=== PATIENT | male | born 1935 | race Two or more races ===

== ENCOUNTER → 2016-11-18 | Outpatient (CLI) | payer MEDICARE, OTHER ==
[~2016-11-18] MED LIST: ASPI-231 PO; ATOR20TA PO; LISI2.5T47 PO; OMEP20CA74 PO; TRAV0.00 EACHEYE
[2016-11-18 12:21] LABS: Basophils # (auto) 0.1 uL; Eosinophils # (auto) 0.1 uL; Eosinophils % (auto) 1.4 % (0.0-7.0); Hematocrit 41.2 % (41.0-53.0); Hemoglobin 14.2 g/dL (13.5-17.5); Lymphocytes # (auto) 2.7 uL; Lymphocytes % (auto) 42.4 % (10.0-50.0); Mean Corpuscular Hemoglobin 31.8 pg (28.0-32.0); Mean Corpuscular Hgb Conc. 34.6 g/dL (32.0-36.0); Mean Platelet Volume 7.2 fL (6.9-10.8); Monocytes # (auto) 0.6 uL; Monocytes % (auto) 8.9 % (0.0-12.0); Neutrophils % (auto) 46.3 % (37.0-80.0); Nucleated Red Blood Cells % 0.1 %; Platelet Count (auto) 224 10^3/uL (140-450); Red Cell Distribution Width 13.7 % (11.8-14.3); White Blood Cell 6.4 10^3/uL (4.4-10.8)
[2016-11-18 12:25] LABS: Urine Bilirubin Negative (Negative); Urine Blood TRACE /uL (Negative); Urine Color Yellow (Yellow); Urine Glucose Normal (Normal); Urine Ketone Negative (Negative); Urine Nitrite Negative (Negative); Urine RBC 3 /hpf (0 - 3); Urine Urobilinogen Normal (Negative); Urine pH 6.5 (5.0-8.0)
[2016-11-18 13:03] LABS: Albumin 3.7 g/dL (3.4-5.0); BUN/Creatinine Ratio 14.6; Bilirubin, Total 0.6 mg/dL (0.2-1.0); Potassium 4.3 mmol/L (3.5-5.1); Total Protein 7.6 g/dL (6.4-8.2)
== END | disposition home or self-care (01) ==
LOC: LAB 11:37
PROVIDERS: ATTEND Internal Medicine
DX: E11.9 Type 2 diabetes mellitus without complications (principal); K21.9 Gastro-esophageal reflux disease without esophagitis; N40.0 Benign prostatic hyperplasia without lower urinary tract symptoms
CPT/HCPCS: 36415; 80053; 80061; 81001; 82043; 82607; 83036; 84153; 84439; 84443; 85025; 85652

== ENCOUNTER → 2017-02-14 | Outpatient (CLI) | payer MEDICARE, OTHER ==
[2017-02-14 12:37] LABS: Aspartate Aminotransferase 19 U/L (15-37); Cholesterol 221 mg/dL (< 200); HDL Cholesterol 57 mg/dL (40-59); LDL Cholesterol 143 mg/dL (< 100); Triglycerides 117 mg/dL (< 150)
== END | disposition home or self-care (01) ==
LOC: LAB 11:36
PROVIDERS: ATTEND Internal Medicine
DX: E11.9 Type 2 diabetes mellitus without complications (principal); E78.00 Pure hypercholesterolemia, unspecified
CPT/HCPCS: 36415; 80061; 83036; 84450; 84460

== ENCOUNTER → 2017-06-03 | Outpatient (CLI) | payer MEDICARE, OTHER ==
[2017-06-03 12:04] LABS: Alanine Aminotransferase 26 U/L (16-61); Aspartate Aminotransferase 21 U/L (15-37); Cholesterol 157 mg/dL (< 200); HDL Cholesterol 55 mg/dL (40-59); LDL Cholesterol 95 mg/dL (< 100); Triglycerides 95 mg/dL (< 150)
== END | disposition home or self-care (01) ==
LOC: LAB 11:21
PROVIDERS: ATTEND Internal Medicine
DX: E11.9 Type 2 diabetes mellitus without complications (principal); E78.00 Pure hypercholesterolemia, unspecified
CPT/HCPCS: 36415; 80061; 83036; 84443; 84450; 84460

== ENCOUNTER → 2017-12-16 | Outpatient (CLI) | payer MEDICARE, OTHER ==
[2017-12-16 12:50] LABS: Basophils # (auto) 0.1 uL; Basophils % (auto) 0.9 % (0.0-2.0); Eosinophils # (auto) 0.1 uL; Eosinophils % (auto) 1.5 % (0.0-7.0); Hematocrit 41.4 % (41.0-53.0); Hemoglobin 14.2 g/dL (13.5-17.5); Lymphocytes # (auto) 2.4 uL; Lymphocytes % (auto) 36.1 % (10.0-50.0); Mean Corpuscular Hemoglobin 31.6 pg (28.0-32.0); Mean Corpuscular Hgb Conc. 34.2 g/dL (32.0-36.0); Mean Corpuscular Volume 92.5 fL (80.0-100.0); Monocytes # (auto) 0.5 uL; Neutrophils # (auto) 3.5 uL; Neutrophils % (auto) 53.5 % (37.0-80.0); Nucleated Red Blood Cells % 0.1 %; Platelet Count (auto) 218 10^3/uL (140-450); Red Blood Cells 4.48 10^6/uL (4.5-5.90); Red Cell Distribution Width 13.6 % (11.8-14.3); White Blood Cell 6.6 10^3/uL (4.4-10.8)
[2017-12-16 17:08] LABS: BUN/Creatinine Ratio 12.8
[2017-12-16 17:09] LABS: Albumin 3.8 g/dL (3.4-5.0); Calcium 8.4 mg/dL (8.5-10.1)
[2017-12-16 17:11] LABS: Bilirubin, Total 0.5 mg/dL (0.2-1.0); Total Protein 7.3 g/dL (6.4-8.2)
== END | disposition home or self-care (01) ==
LOC: LAB 12:20
PROVIDERS: ATTEND Internal Medicine
DX: E11.9 Type 2 diabetes mellitus without complications (principal); I25.10 Atherosclerotic heart disease of native coronary artery without angina pectoris; N40.0 Benign prostatic hyperplasia without lower urinary tract symptoms; Z87.891 Personal history of nicotine dependence
CPT/HCPCS: 36415; 80053; 83036; 84153; 85025

== ENCOUNTER → 2018-06-01 | Outpatient (CLI) | payer MEDICARE, OTHER ==
[2018-06-01 12:27] LABS: Urine WBC None Seen /hpf (0 - 3)
[2018-06-01 12:40] LABS: Basophils # (auto) 0.1 uL; Basophils % (auto) 0.9 % (0.0-2.0); Eosinophils # (auto) 0.1 uL; Eosinophils % (auto) 2.2 % (0.0-7.0); Hematocrit 42.9 % (41.0-53.0); Hemoglobin 14.5 g/dL (13.5-17.5); Lymphocytes # (auto) 2.4 uL; Lymphocytes % (auto) 37.7 % (10.0-50.0); Mean Corpuscular Hemoglobin 31.2 pg (28.0-32.0); Mean Corpuscular Hgb Conc. 33.7 g/dL (32.0-36.0); Mean Corpuscular Volume 92.4 fL (80.0-100.0); Monocytes # (auto) 0.6 uL; Monocytes % (auto) 10.1 % (0.0-12.0); Neutrophils # (auto) 3.1 uL; Neutrophils % (auto) 49.1 % (37.0-80.0); Nucleated Red Blood Cells % 0.2 %; Platelet Count (auto) 223 10^3/uL (140-450); Red Blood Cells 4.65 10^6/uL (4.5-5.90); Red Cell Distribution Width 13.5 % (11.8-14.3); White Blood Cell 6.3 10^3/uL (4.4-10.8)
[2018-06-01 12:56] LABS: Urine Bacteria NONE SEEN /hpf (None Seen); Urine Blood 1+ /uL (Negative); Urine Specific Gravity 1.012 (1.001-1.035)
[2018-06-01 13:17] LABS: BUN/Creatinine Ratio 14.8; Potassium 4.2 mmol/L (3.5-5.1)
[2018-06-01 13:18] LABS: Albumin 3.7 g/dL (3.4-5.0)
[2018-06-01 13:20] LABS: Bilirubin, Total 0.6 mg/dL (0.2-1.0); Total Protein 7.4 g/dL (6.4-8.2)
== END | disposition home or self-care (01) ==
LOC: LAB 12:06
PROVIDERS: ATTEND Internal Medicine
DX: E11.9 Type 2 diabetes mellitus without complications (principal)
CPT/HCPCS: 36415; 80053; 80061; 81001; 82043; 84439; 84443; 85025; 85652

== ENCOUNTER → 2018-08-31 | Outpatient (CLI) | payer MEDICARE, OTHER ==
[2018-08-31 11:11] LABS: Cholesterol 158 mg/dL (< 200); HDL Cholesterol 50 mg/dL (40-59); LDL Cholesterol 97 mg/dL (< 100); Triglycerides 133 mg/dL (< 150)
[2018-08-31 13:49] LABS: Folate (Folic Acid) > 24.00 ng/mL (5.38-24)
== END | disposition home or self-care (01) ==
LOC: LAB 10:11
PROVIDERS: ATTEND Internal Medicine
DX: E78.00 Pure hypercholesterolemia, unspecified (principal); G62.9 Polyneuropathy, unspecified; R73.03 Prediabetes
CPT/HCPCS: 36415; 80061; 82607; 82746; 83036

== ENCOUNTER 2018-09-08 09:16 | Day surgery (SDC) | payer MEDICARE, OTHER ==
[2018-09-05 08:55] LABS: Basophils # (auto) 0 uL; Basophils % (auto) 0.7 % (0.0-2.0); Eosinophils # (auto) 0.2 uL; Eosinophils % (auto) 3.2 % (0.0-7.0); Hematocrit 42.6 % (41.0-53.0); Hemoglobin 14.4 g/dL (13.5-17.5); Lymphocytes # (auto) 2.3 uL; Lymphocytes % (auto) 34.4 % (10.0-50.0); Mean Corpuscular Hemoglobin 31.2 pg (28.0-32.0); Mean Corpuscular Hgb Conc. 33.7 g/dL (32.0-36.0); Mean Corpuscular Volume 92.6 fL (80.0-100.0); Monocytes # (auto) 0.7 uL; Monocytes % (auto) 9.9 % (0.0-12.0); Neutrophils # (auto) 3.5 uL; Neutrophils % (auto) 51.8 % (37.0-80.0); Nucleated Red Blood Cells % 0.1 %; Platelet Count (auto) 235 10^3/uL (140-450); Red Cell Distribution Width 13.3 % (11.8-14.3); White Blood Cell 6.8 10^3/uL (4.4-10.8)
[2018-09-05 09:09] LABS: INR 0.95 (0.9-1.15); Partial Thromboplastin Time 25.9 sec (23.64-32.05)
[~2018-09-08] VITALS: Ht 162.6 cm; Wt 60.8 kg
[~2018-09-08 09:16] MED LIST changes: -ATOR20TA PO
[2018-09-08] MEDS ORDERED: fentaNYL CITRATE 100 MCG/2 ML VL ONE (10:07)
[2018-09-08] MEDS ORDERED: SODIUM CHLORIDE LOCK 10 ML ONE (10:07)
[2018-09-08] MEDS ORDERED: LIDOCAINE VISCOUS 2% 15ML UD ONE (10:07)
[2018-09-08] MEDS ORDERED: MIDAZOLAM HCL 5 MG/ML-1ML VIAL ONE (10:08)
[2018-09-08] MEDS ORDERED: diphenhdrAMINE HCL 50 MG/1 ML VL ONE (10:08)
[2018-09-08 11:02] VITALS: BP 131/77
== END 2018-09-08 11:15 | disposition home or self-care (01) ==
LOC: SUR 09:16
PROVIDERS: ATTEND Internal Medicine Gastroenterology
DX: R13.10 Dysphagia, unspecified (principal); K21.9 Gastro-esophageal reflux disease without esophagitis; M81.0 Age-related osteoporosis without current pathological fracture; E11.22 Type 2 diabetes mellitus with diabetic chronic kidney disease; I12.9 Hypertensive chronic kidney disease with stage 1 through stage 4 chronic kidney disease, or unspecified chronic kidney disease; N18.2 Chronic kidney disease, stage 2 (mild); E78.5 Hyperlipidemia, unspecified; Z79.899 Other long term (current) drug therapy; Z79.82 Long term (current) use of aspirin; Z88.0 Allergy status to penicillin; Z98.49 Cataract extraction status, unspecified eye; Z95.818 Presence of other cardiac implants and grafts; Z82.49 Family history of ischemic heart disease and other diseases of the circulatory system; Z83.3 Family history of diabetes mellitus; Z98.890 Other specified postprocedural states
CPT/HCPCS: 36415; 43235; 43450; 85025; 85610; 85730; J1200; J2250; J3010; J7030

== ENCOUNTER → 2019-01-25 | Outpatient (CLI) | payer MEDICARE, OTHER ==
[2019-01-25 13:48] LABS: Calcium 9.2 mg/dL (8.5-10.1); Potassium 4.4 mmol/L (3.5-5.1)
[2019-01-25 13:52] LABS: BUN/Creatinine Ratio 17.9; Bilirubin, Total 0.4 mg/dL (0.2-1.0); Total Protein 7.7 g/dL (6.4-8.2)
[2019-01-25 13:57] LABS: Free T4 (Free Thyroxine) 0.91 ng/dL (0.89-1.76)
[2019-01-25 13:59] LABS: Prostate Specific Antigen 2.28 ng/mL (0.0-4.0)
== END | disposition home or self-care (01) ==
LOC: LAB 12:33
PROVIDERS: ATTEND Internal Medicine
DX: E11.9 Type 2 diabetes mellitus without complications (principal); R39.11 Hesitancy of micturition
CPT/HCPCS: 36415; 80053; 83036; 84153; 84439; 84443

== ENCOUNTER → 2019-07-10 | Outpatient (CLI) | payer MEDICARE, OTHER ==
[2019-07-10 11:35] LABS: Basophils # (auto) 0.1 10 ^3/uL (0-0.2); Basophils % (auto) 0.8 % (0.0-2.0); Eosinophils # (auto) 0.2 10 ^3/uL (0-0.8); Eosinophils % (auto) 2.8 % (0.0-7.0); Hematocrit 41.5 % (41.0-53.0); Hemoglobin 13.8 g/dL (13.5-17.5); Lymphocytes # (auto) 2.3 10 ^3/uL (0.4-5.4); Mean Corpuscular Hemoglobin 30.8 pg (28.0-32.0); Mean Corpuscular Hgb Conc. 33.3 g/dL (32.0-36.0); Mean Corpuscular Volume 92.4 fL (80.0-100.0); Monocytes # (auto) 0.6 10 ^3/uL (0-1.3); Monocytes % (auto) 9.1 % (0.0-12.0); Neutrophils # (auto) 3.1 10 ^3/uL (1.6-8.6); Neutrophils % (auto) 50.3 % (37.0-80.0); Platelet Count (auto) 233 10^3/uL (140-450); Red Blood Cells 4.49 10^6/uL (4.5-5.90); Red Cell Distribution Width 13.6 % (11.8-14.3); White Blood Cell 6.2 10^3/uL (4.4-10.8)
[2019-07-10 11:55] LABS: Urine Bacteria NONE SEEN /hpf (None Seen); Urine Blood 1+ /uL (Negative); Urine Mucus FEW (None Seen); Urine Specific Gravity 1.015 (1.001-1.035); Urine WBC 1 /hpf (0 - 3)
[2019-07-10 12:03] LABS: Cholesterol 191 mg/dL (< 200)
[2019-07-10 12:05] LABS: HDL Cholesterol 41 mg/dL (40-59); LDL Cholesterol 113 mg/dL (< 100); Triglycerides 137 mg/dL (< 150)
== END | disposition home or self-care (01) ==
LOC: LAB 11:20
PROVIDERS: ATTEND Internal Medicine
DX: E11.9 Type 2 diabetes mellitus without complications (principal); I25.10 Atherosclerotic heart disease of native coronary artery without angina pectoris
CPT/HCPCS: 36415; 80061; 81001; 82043; 83036; 85025

== ENCOUNTER → 2019-12-28 | Outpatient (CLI) | payer MEDICARE, OTHER ==
[2019-12-28 09:45] LABS: Urine WBC None Seen /hpf (0 - 3)
[2019-12-28 09:55] LABS: Urine Bacteria NONE SEEN /hpf (None Seen); Urine Blood 1+ /uL (Negative); Urine Mucus FEW (None Seen); Urine Specific Gravity 1.007 (1.001-1.035)
[2019-12-28 10:00] LABS: Basophils # (auto) 0.1 10 ^3/uL (0-0.2); Basophils % (auto) 1.3 % (0.0-2.0); Eosinophils # (auto) 0.2 10 ^3/uL (0-0.8); Eosinophils % (auto) 2.7 % (0.0-7.0); Hematocrit 43.9 % (41.0-53.0); Hemoglobin 14.8 g/dL (13.5-17.5); Lymphocytes # (auto) 2.8 10 ^3/uL (0.4-5.4); Lymphocytes % (auto) 40.8 % (10.0-50.0); Mean Corpuscular Hemoglobin 31.2 pg (28.0-32.0); Mean Corpuscular Hgb Conc. 33.7 g/dL (32.0-36.0); Mean Corpuscular Volume 92.5 fL (80.0-100.0); Monocytes # (auto) 0.6 10 ^3/uL (0-1.3); Monocytes % (auto) 9.1 % (0.0-12.0); Neutrophils # (auto) 3.2 10 ^3/uL (1.6-8.6); Neutrophils % (auto) 46.1 % (37.0-80.0); Nucleated Red Blood Cells % 0.1 %; Platelet Count (auto) 259 10^3/uL (140-450); Red Blood Cells 4.75 10^6/uL (4.5-5.90); Red Cell Distribution Width 13.6 % (11.8-14.3); White Blood Cell 6.9 10^3/uL (4.4-10.8)
[2019-12-28 10:09] LABS: Potassium 3.9 mmol/L (3.5-5.1)
[2019-12-28 10:23] LABS: Albumin 3.8 g/dL (3.4-5.0); Bilirubin, Total 0.6 mg/dL (0.2-1.0); Calcium 9.1 mg/dL (8.5-10.1); Free T4 (Free Thyroxine) 0.97 ng/dL (0.89-1.76); Prostate Specific Antigen 2.21 ng/mL (0.0-4.0); Total Protein 7.3 g/dL (6.4-8.2)
== END | disposition home or self-care (01) ==
LOC: LAB 09:14
PROVIDERS: ATTEND Internal Medicine
DX: Z12.5 Encounter for screening for malignant neoplasm of prostate (principal); E11.9 Type 2 diabetes mellitus without complications; E78.5 Hyperlipidemia, unspecified
CPT/HCPCS: 36415; 80053; 81001; 82043; 83036; 83721; 84153; 84439; 84443; 85025

== ENCOUNTER → 2020-07-08 | Outpatient (CLI) | payer MEDICARE, OTHER ==
[2020-07-08 11:52] LABS: Basophils # (auto) 0 10 ^3/uL (0-0.2); Basophils % (auto) 0.6 % (0.0-2.0); Eosinophils # (auto) 0.2 10 ^3/uL (0-0.8); Eosinophils % (auto) 2.6 % (0.0-7.0); Hematocrit 40.4 % (41.0-53.0); Lymphocytes # (auto) 2.9 10 ^3/uL (0.4-5.4); Lymphocytes % (auto) 41.1 % (10.0-50.0); Mean Corpuscular Hemoglobin 31.5 pg (28.0-32.0); Mean Corpuscular Hgb Conc. 34.6 g/dL (32.0-36.0); Monocytes # (auto) 0.6 10 ^3/uL (0-1.3); Monocytes % (auto) 9.1 % (0.0-12.0); Neutrophils # (auto) 3.3 10 ^3/uL (1.6-8.6); Neutrophils % (auto) 46.6 % (37.0-80.0); Nucleated Red Blood Cells % 0.1 %; Platelet Count (auto) 232 10^3/uL (140-450); Red Blood Cells 4.44 10^6/uL (4.5-5.90); Red Cell Distribution Width 13.3 % (11.8-14.3)
[2020-07-08 12:38] LABS: Potassium 4.2 mmol/L (3.5-5.1)
[2020-07-08 12:44] LABS: Albumin 3.5 g/dL (3.4-5.0); BUN/Creatinine Ratio 19.6; Bilirubin, Total 0.4 mg/dL (0.2-1.0); Calcium 8.6 mg/dL (8.5-10.1); Total Protein 7.2 g/dL (6.4-8.2)
== END | disposition home or self-care (01) ==
LOC: LAB 11:22
PROVIDERS: ATTEND Internal Medicine
DX: I25.10 Atherosclerotic heart disease of native coronary artery without angina pectoris (principal); E11.9 Type 2 diabetes mellitus without complications; K21.9 Gastro-esophageal reflux disease without esophagitis
CPT/HCPCS: 36415; 80053; 83036; 83721; 85025

== ENCOUNTER → 2020-07-22 | Outpatient (CLI) | payer MEDICARE, OTHER | END | disposition home or self-care (01) | LOC: LAB 10:36 | PROVIDERS: ATTEND Internal Medicine | DX: K59.00 Constipation, unspecified (principal) | CPT/HCPCS: 36415; 82270; 84439; 84443 ==

== ENCOUNTER → 2021-03-19 | Outpatient (CLI) | payer MEDICARE, OTHER ==
[~2021-03-19] MED LIST changes: -ASPI-231 PO; +ASPI1TAB20 PO
[2021-03-19 12:48] LABS: Albumin 3.6 g/dL (3.4-5.0); Calcium 8.6 mg/dL (8.5-10.1); Potassium 3.6 mmol/L (3.5-5.1)
[2021-03-19 12:53] LABS: BUN/Creatinine Ratio 15.2; Bilirubin, Total 0.4 mg/dL (0.2-1.0); Total Protein 7.6 g/dL (6.4-8.2)
== END | disposition home or self-care (01) ==
LOC: LAB 11:08
PROVIDERS: ATTEND Internal Medicine
DX: Z12.5 Encounter for screening for malignant neoplasm of prostate (principal); I25.10 Atherosclerotic heart disease of native coronary artery without angina pectoris; E78.00 Pure hypercholesterolemia, unspecified
CPT/HCPCS: 36415; 80053; 80061; 84153

== ENCOUNTER → 2021-04-15 | Outpatient (CLI) | payer MEDICARE, OTHER | END | disposition home or self-care (01) | LOC: LAB 09:07 | PROVIDERS: ATTEND Internal Medicine | DX: R25.1 Tremor, unspecified (principal) | CPT/HCPCS: 36415; 84439; 84443 ==

== ENCOUNTER → 2021-07-06 | Outpatient (CLI) | payer MEDICARE, OTHER | END | disposition home or self-care (01) | LOC: XYW 09:41 | PROVIDERS: ATTEND Internal Medicine | DX: I99.8 Other disorder of circulatory system (principal); M48.8X2 Other specified spondylopathies, cervical region; H53.9 Unspecified visual disturbance | CPT/HCPCS: 93886 ==

== ENCOUNTER → 2021-07-07 | Outpatient (CLI) | payer MEDICARE, OTHER | END | disposition home or self-care (01) | LOC: XYW 15:23 | PROVIDERS: ATTEND Internal Medicine | DX: I35.8 Other nonrheumatic aortic valve disorders (principal); G45.3 Amaurosis fugax | CPT/HCPCS: 93306 ==

== ENCOUNTER → 2021-07-10 | Outpatient (CLI) | payer MEDICARE, OTHER ==
[2021-07-10 10:32] LABS: Basophils # (auto) 0.1 10 ^3/uL (0-0.2); Eosinophils # (auto) 0.2 10 ^3/uL (0-0.8); Eosinophils % (auto) 2.6 % (0.0-7.0); Lymphocytes % (auto) 40.5 % (10.0-50.0); Mean Corpuscular Hemoglobin 31.2 pg (28.0-32.0); Mean Corpuscular Hgb Conc. 34.2 g/dL (32.0-36.0); Mean Corpuscular Volume 91.1 fL (80.0-100.0); Monocytes # (auto) 0.6 10 ^3/uL (0-1.3); Monocytes % (auto) 8.6 % (0.0-12.0); Neutrophils # (auto) 3.5 10 ^3/uL (1.6-8.6); Neutrophils % (auto) 47.3 % (37.0-80.0); Nucleated Red Blood Cells % 0.1 %; Red Cell Distribution Width 13.5 % (11.8-14.3); White Blood Cell 7.3 10^3/uL (4.4-10.8)
[2021-07-10 10:56] LABS: Albumin 3.6 g/dL (3.4-5.0); Calcium 8.8 mg/dL (8.5-10.1); Potassium 4.2 mmol/L (3.5-5.1)
[2021-07-10 11:02] LABS: BUN/Creatinine Ratio 15.7; Bilirubin, Total 0.5 mg/dL (0.2-1.0); Total Protein 7.1 g/dL (6.4-8.2)
== END | disposition home or self-care (01) ==
LOC: LAB 10:13
PROVIDERS: ATTEND Internal Medicine
DX: E11.9 Type 2 diabetes mellitus without complications (principal); H34.8192 Central retinal vein occlusion, unspecified eye, stable
CPT/HCPCS: 36415; 80053; 80061; 83036; 85025; 85610; 86038

== ENCOUNTER → 2023-02-11 | Day surgery (SDC) | payer MEDICARE, BC ==
[2023-02-08 09:31] LABS: Basophils # (auto) 0 10 ^3/uL (0-0.2); Basophils % (auto) 0.5 % (0.0-2.0); Eosinophils # (auto) 0.2 10 ^3/uL (0-0.8); Eosinophils % (auto) 2.4 % (0.0-7.0); Hemoglobin 13.4 g/dL (13.5-17.5); Lymphocytes # (auto) 2.6 10 ^3/uL (0.4-5.4); Lymphocytes % (auto) 37.3 % (10.0-50.0); Mean Corpuscular Hemoglobin 31.2 pg (28.0-32.0); Mean Corpuscular Hgb Conc. 33.5 g/dL (32.0-36.0); Mean Corpuscular Volume 93.1 fL (80.0-100.0); Monocytes # (auto) 0.7 10 ^3/uL (0-1.3); Monocytes % (auto) 10.3 % (0.0-12.0); Neutrophils # (auto) 3.5 10 ^3/uL (1.6-8.6); Neutrophils % (auto) 49.5 % (37.0-80.0); Red Cell Distribution Width 13.5 % (11.8-14.3)
[2023-02-08 09:46] LABS: INR 0.99 (0.9-1.15); Partial Thromboplastin Time 26.9 SEC (24.5-34.5); Prothrombin Time 10.4 sec (9.3-11.8)
[2023-02-08 11:16] LABS: Alanine Aminotransferase 19 U/L (7-40); Alkaline Phosphatase 77 U/L (46-116); Anion Gap 7 (5-15); BUN/Creatinine Ratio 17.6 (10.0-20.0); Blood Urea Nitrogen 22 mg/dL (9-23); Calcium 9.2 mg/dL (8.5-10.1); Carbon Dioxide 27 mmol/L (20-30); Chloride 106 mmol/L (98-107); Glucose 105 mg/dL (74-106); Potassium 3.9 mmol/L (3.5-5.1); Sodium 140 mmol/L (136-145)
[2023-02-08 11:17] LABS: Albumin 4.3 g/dL (3.2-4.8); Aspartate Aminotransferase 20 U/L (13-40)
[2023-02-08 11:18] LABS: Bilirubin, Total 0.5 mg/dL (0.2-1.0); Total Protein 7.1 g/dL (5.7-8.2)
[~2023-02-11] VITALS: Ht 167.6 cm; Wt 59.0 kg
[~2023-02-11] MED LIST changes: +FINA5TAB4 PO; +LIDOCAINE VISCOUS 2% 15ML UD ONE; -LISI2.5T47 PO; +LOSA25TA15 PO; -OMEP20CA74 PO; +PANT40TA2 PO; +SODIUM CHLORIDE LOCK 10 ML ONE
[2023-02-11 13:09] VITALS: O2SAT 100
[2023-02-11] MEDS: diphenhdrAMINE HCL 50 MG/1 ML VL ONE ×2 (13:19→13:20)
[2023-02-11] MEDS: MIDAZOLAM HCL 5 MG/ML-1ML VIAL ONE ×3 (13:19→13:28)
[2023-02-11] MEDS: fentaNYL CITRATE 100 MCG/2 ML VL ONE ×3 (13:19→13:25)
[2023-02-11 13:35] VITALS: PULSE 65; RESP 13; TEMP 97.6; O2SAT 100
[2023-02-11 14:30] VITALS: PULSE 64; RESP 14; O2SAT 96
[2023-02-11 14:50] VITALS: BP 147/74; PULSE 64; RESP 13; O2SAT 97
== END | disposition home or self-care (01) ==
LOC: GI 12:24
PROVIDERS: ATTEND Internal Medicine Gastroenterology
DX: R13.12 Dysphagia, oropharyngeal phase (principal); K22.10 Ulcer of esophagus without bleeding; K44.9 Diaphragmatic hernia without obstruction or gangrene; K29.90 Gastroduodenitis, unspecified, without bleeding; E11.9 Type 2 diabetes mellitus without complications; Z79.82 Long term (current) use of aspirin; Z79.84 Long term (current) use of oral hypoglycemic drugs; Z98.890 Other specified postprocedural states
CPT/HCPCS: 36415; 43239; 43450; 80053; 82962; 85025; 85610; 85730; J1200; J2250; J3010; J7030; 99152

== ENCOUNTER → 2023-04-14 | Outpatient (CLI) | payer MEDICARE, BC ==
[~2023-04-14] MED LIST changes: -LIDOCAINE VISCOUS 2% 15ML UD ONE; -SODIUM CHLORIDE LOCK 10 ML ONE
[2023-04-14 13:18] LABS: Basophils # (auto) 0.1 10 ^3/uL (0-0.2); Eosinophils # (auto) 0.1 10 ^3/uL (0-0.8); Eosinophils % (auto) 1.9 % (0.0-7.0); Hematocrit 40.2 % (41.0-53.0); Hemoglobin 13.3 g/dL (13.5-17.5); Lymphocytes # (auto) 2.2 10 ^3/uL (0.4-5.4); Lymphocytes % (auto) 30.3 % (10.0-50.0); Mean Corpuscular Hemoglobin 30.7 pg (28.0-32.0); Mean Corpuscular Hgb Conc. 33.1 g/dL (32.0-36.0); Mean Corpuscular Volume 92.6 fL (80.0-100.0); Monocytes # (auto) 0.6 10 ^3/uL (0-1.3); Monocytes % (auto) 8.4 % (0.0-12.0); Neutrophils # (auto) 4.2 10 ^3/uL (1.6-8.6); Neutrophils % (auto) 58.4 % (37.0-80.0); Nucleated Red Blood Cells % 0.1 %; Red Blood Cells 4.34 10^6/uL (4.5-5.90); Red Cell Distribution Width 13.7 % (11.8-14.3); White Blood Cell 7.1 10^3/uL (4.4-10.8)
[2023-04-14 13:24] LABS: Urine Bacteria NONE SEEN /hpf (None Seen); Urine Blood 1+ /uL (Negative); Urine Clarity Clear (Clear); Urine Color Yellow (Yellow); Urine Protein, UAD Negative (Negative); Urine Specific Gravity 1.015 (1.001-1.035); Urine Urobilinogen Normal (Negative); Urine WBC <1 /hpf (0 - 3); Urine pH 5.5 (5.0-8.0)
[2023-04-14 13:59] LABS: Alanine Aminotransferase 28 U/L (7-40); Albumin 4.2 g/dL (3.2-4.8); Alkaline Phosphatase 84 U/L (46-116); Anion Gap 4 (5-15); Aspartate Aminotransferase 32 U/L (13-40); BUN/Creatinine Ratio 15.2 (10.0-20.0); Blood Urea Nitrogen 17 mg/dL (9-23); Calcium 9.3 mg/dL (8.5-10.1); Carbon Dioxide 29 mmol/L (20-30); Chloride 107 mmol/L (98-107); Glucose 103 mg/dL (74-106); LDL Cholesterol 125 mg/dL (< 100); Potassium 4.2 mmol/L (3.5-5.1); Sodium 140 mmol/L (136-145); Triglycerides 168 mg/dL (< 150)
[2023-04-14 14:00] LABS: Bilirubin, Total 0.5 mg/dL (0.2-1.0); Cholesterol 204 mg/dL (< 200); HDL Cholesterol 47 mg/dL (40-59); Prostate Specific Antigen 2.97 ng/mL (0.0-4.0); Total Protein 7.2 g/dL (5.7-8.2)
[2023-04-14 14:04] LABS: Free T4 (Free Thyroxine) 1.04 ng/dL (0.89-1.76)
[2023-04-14 14:08] LABS: Creatinine, Urine 100.86 mg/dL (30.0-125.0)
[2023-04-14 14:10] LABS: Erythrocyte Sedimentation Rate 22 mm/hr (0-20)
== END | disposition home or self-care (01) ==
LOC: LAB 12:51
PROVIDERS: ATTEND Internal Medicine
DX: Z12.5 Encounter for screening for malignant neoplasm of prostate (principal); E11.9 Type 2 diabetes mellitus without complications; I25.10 Atherosclerotic heart disease of native coronary artery without angina pectoris
CPT/HCPCS: 36415; 80053; 80061; 81001; 82043; 82570; 82607; 83036; 84153; 84439; 84443; 85025; 85652

== ENCOUNTER 2023-05-06 14:15 | Inpatient (IN) | payer MEDICARE, BC ==
[~2023-05-06] VITALS: Ht 160 cm; Wt 59.1 kg
[2023-05-06 15:43] LABS: Basophils # (auto) 0.1 10 ^3/uL (0-0.2); Eosinophils # (auto) 0.1 10 ^3/uL (0-0.8); Eosinophils % (auto) 1.3 % (0.0-7.0); Hematocrit 40.5 % (41.0-53.0); Hemoglobin 13.7 g/dL (13.5-17.5); Lymphocytes # (auto) 3.2 10 ^3/uL (0.4-5.4); Lymphocytes % (auto) 35.5 % (10.0-50.0); Mean Corpuscular Hemoglobin 30.6 pg (28.0-32.0); Mean Corpuscular Hgb Conc. 33.8 g/dL (32.0-36.0); Mean Corpuscular Volume 90.7 fL (80.0-100.0); Monocytes # (auto) 0.8 10 ^3/uL (0-1.3); Monocytes % (auto) 8.5 % (0.0-12.0); Neutrophils # (auto) 4.9 10 ^3/uL (1.6-8.6); Neutrophils % (auto) 53.7 % (37.0-80.0); Nucleated Red Blood Cells % 0.1 %; Red Blood Cells 4.46 10^6/uL (4.5-5.90); Red Cell Distribution Width 13.4 % (11.8-14.3)
[2023-05-06] MEDS: KETOROLAC TROMETH 30 MG/ML 1ML VIAL IV ONE (15:50)
[2023-05-06 16:01] LABS: Alanine Aminotransferase 16 U/L (7-40); Albumin 4.2 g/dL (3.2-4.8); Alkaline Phosphatase 83 U/L (46-116); Anion Gap 6 (5-15); Aspartate Aminotransferase 36 U/L (13-40); BUN/Creatinine Ratio 12.3 (10.0-20.0); Blood Urea Nitrogen 14 mg/dL (9-23); Calcium 9.3 mg/dL (8.5-10.1); Carbon Dioxide 28 mmol/L (20-30); Chloride 107 mmol/L (98-107); Glucose 103 mg/dL (74-106); Potassium 3.9 mmol/L (3.5-5.1); Sodium 141 mmol/L (136-145)
[2023-05-06 16:02] LABS: Bilirubin, Total 0.5 mg/dL (0.2-1.0); Total Protein 7.1 g/dL (5.7-8.2)
[2023-05-06 16:11] LABS: Urine Bacteria NONE SEEN /hpf (None Seen); Urine Blood 1+ /uL (Negative); Urine Clarity Clear (Clear); Urine Color Colorless (Yellow); Urine Mucus FEW (None Seen); Urine Protein, UAD Negative (Negative); Urine Specific Gravity 1.009 (1.001-1.035); Urine Urobilinogen Normal (Negative); Urine WBC <1 /hpf (0 - 3)
[2023-05-06 16:25] VITALS: PULSE 60; RESP 12; O2SAT 98
[2023-05-06] MEDS: ENOXAPARIN SOD 60 MG/0.6 ML SYRINGE SC ONE (16:32)
[2023-05-06] MEDS: NITROGLYCERIN 2% OINT 1GM PKG TD ONE (16:38)
[2023-05-06 20:00] VITALS: PULSE 58; RESP 15; O2SAT 98
[2023-05-06] MEDS ORDERED: hydrALAZINE HCL 20 MG/ML VL IV PRN (20:45)
[2023-05-06] MEDS ORDERED: ACETAMINOPHEN 325 MG TAB PO PRN (20:45)
[2023-05-06] MEDS ORDERED: NITROGLYCERIN 0.4 MG SL TAB SL PRN (21:30)
[2023-05-06] MEDS ORDERED: MORPHINE SULFATE INJ 2 MG/ml SYRG IV PRN (21:30)
[2023-05-06] MEDS: SODIUM CHLOR 0.9% PF (SALINE LOCK) 10ML VIAL/SYR IV SCH (22:21)
[2023-05-07] VITALS (10 sets, daily range): BP systolic 112–160; BP diastolic 52–64; PULSE 53–88; RESP 15–19; TEMP 97.6–98.4; O2SAT 93–98
[2023-05-07 06:36] LABS: Basophils # (auto) 0 10 ^3/uL (0-0.2); Basophils % (auto) 0.5 % (0.0-2.0); Eosinophils # (auto) 0.2 10 ^3/uL (0-0.8); Eosinophils % (auto) 1.9 % (0.0-7.0); Hematocrit 40.5 % (41.0-53.0); Hemoglobin 13.7 g/dL (13.5-17.5); Lymphocytes # (auto) 3.6 10 ^3/uL (0.4-5.4); Lymphocytes % (auto) 37.3 % (10.0-50.0); Mean Corpuscular Hgb Conc. 33.8 g/dL (32.0-36.0); Mean Corpuscular Volume 91.7 fL (80.0-100.0); Monocytes % (auto) 10.3 % (0.0-12.0); Neutrophils # (auto) 4.8 10 ^3/uL (1.6-8.6); Red Blood Cells 4.42 10^6/uL (4.5-5.90); Red Cell Distribution Width 13.4 % (11.8-14.3); White Blood Cell 9.6 10^3/uL (4.4-10.8)
[2023-05-07 06:45] LABS: Alanine Aminotransferase 34 U/L (7-40); Alkaline Phosphatase 72 U/L (46-116); Anion Gap 8 (5-15); Aspartate Aminotransferase 211 U/L (13-40); BUN/Creatinine Ratio 15.2 (10.0-20.0); Bilirubin, Total 0.4 mg/dL (0.2-1.0); Blood Urea Nitrogen 20 mg/dL (9-23); Calcium 8.9 mg/dL (8.7-10.4); Carbon Dioxide 27 mmol/L (20-30); Chloride 108 mmol/L (98-107); Glucose 98 mg/dL (74-106); Potassium 3.9 mmol/L (3.5-5.1); Sodium 143 mmol/L (136-145); Total Protein 6.8 g/dL (5.7-8.2)
[2023-05-07] MEDS: ASPirin 81 mg TAB PO SCH (08:30)
[2023-05-07] MEDS: ENOXAPARIN SOD 60 MG/0.6 ML SYRINGE SC SCH ×2 (08:42→10:15)
[2023-05-07] MEDS: FAMOTIDINE (10MG/ML) 2ML VL IV SCH (08:42)
[2023-05-07] MEDS: CLOPIDOGREL BISULFATE 75 MG TAB PO ONE (09:15)
[2023-05-07] MEDS: SOD CHL 0.45% 1,000 ML IV SCH (09:15)
[2023-05-07] MEDS: ENOXAPARIN SOD 100 MG/1 ML SYRINGE SC SCH (10:03)
[2023-05-07] MEDS: CLOPIDOGREL BISULFATE 75 MG TAB PO SCH (10:03)
[2023-05-07 10:15] LABS: Triglycerides 195 mg/dL (< 150)
[2023-05-07 10:16] LABS: LDL Cholesterol 135 mg/dL (< 100)
[2023-05-07 10:17] LABS: Cholesterol 199 mg/dL (< 200); HDL Cholesterol 46 mg/dL (40-59)
[2023-05-07] MEDS: HYDROcodone-ACET 5/325MG TAB PO PRN (17:51)
[2023-05-07] MEDS: ATORVASTATIN 20 MG TAB PO SCH (21:34)
[2023-05-08 04:37] VITALS: BP 121/63; PULSE 67; RESP 16; TEMP 98.3; O2SAT 98
[2023-05-08 08:00] VITALS: BP 118/53; PULSE 55; PULSE 65; RESP 20; TEMP 98; O2SAT 95
[2023-05-08 12:00] VITALS: BP 139/57; PULSE 74; RESP 18; TEMP 97.2; O2SAT 96
[2023-05-08 16:00] VITALS: BP 120/72; PULSE 69; RESP 18; TEMP 98.3; O2SAT 95
[2023-05-08 20:00] VITALS: BP 138/62; PULSE 72; PULSE 78; RESP 16; TEMP 97.3; O2SAT 96
[2023-05-08 21:01] LABS: Alanine Aminotransferase 97 U/L (7-40); Albumin 3.7 g/dL (3.2-4.8); Alkaline Phosphatase 115 U/L (46-116); Anion Gap 2 (5-15); Aspartate Aminotransferase 182 U/L (13-40); BUN/Creatinine Ratio 15.3 (10.0-20.0); Blood Urea Nitrogen 20 mg/dL (9-23); Calcium 8.9 mg/dL (8.7-10.4); Carbon Dioxide 29 mmol/L (20-30); Chloride 108 mmol/L (98-107); Glucose 98 mg/dL (74-106); Potassium 4.3 mmol/L (3.5-5.1); Sodium 139 mmol/L (136-145)
[2023-05-08 21:02] LABS: Bilirubin, Total 0.4 mg/dL (0.2-1.0); Total Protein 6.6 g/dL (5.7-8.2)
[2023-05-08 22:00] VITALS: BP 138/62; PULSE 78; RESP 16; TEMP 97.3; O2SAT 96
[2023-05-09 04:49] VITALS: BP 126/56; PULSE 67; RESP 18; TEMP 97.7; O2SAT 96
[2023-05-09] MEDS: CARBIDOPA W LEVODOPA 25/100mg TABLET PO SCH (05:28)
[2023-05-09 08:00] VITALS: PULSE 63; RESP 18; O2SAT 96
[2023-05-09 09:00] VITALS: BP 118/50; PULSE 65; RESP 15; TEMP 97.9; O2SAT 96
[2023-05-09 09:00] LABS: Basophils # (auto) 0.1 10 ^3/uL (0-0.2); Eosinophils # (auto) 0.1 10 ^3/uL (0-0.8); Eosinophils % (auto) 1.4 % (0.0-7.0); Hematocrit 37.1 % (41.0-53.0); Hemoglobin 12.5 g/dL (13.5-17.5); Lymphocytes # (auto) 2.2 10 ^3/uL (0.4-5.4); Lymphocytes % (auto) 31.6 % (10.0-50.0); Mean Corpuscular Hemoglobin 31.1 pg (28.0-32.0); Mean Corpuscular Hgb Conc. 33.7 g/dL (32.0-36.0); Mean Corpuscular Volume 92.1 fL (80.0-100.0); Monocytes # (auto) 0.8 10 ^3/uL (0-1.3); Monocytes % (auto) 11.6 % (0.0-12.0); Neutrophils # (auto) 3.8 10 ^3/uL (1.6-8.6); Neutrophils % (auto) 54.4 % (37.0-80.0); Red Blood Cells 4.02 10^6/uL (4.5-5.90); Red Cell Distribution Width 13.5 % (11.8-14.3); White Blood Cell 7.1 10^3/uL (4.4-10.8)
[2023-05-09 09:07] LABS: Anion Gap 3 (5-15); Carbon Dioxide 29 mmol/L (20-30); Chloride 109 mmol/L (98-107); Potassium 4.1 mmol/L (3.5-5.1); Sodium 141 mmol/L (136-145)
[2023-05-09 09:08] LABS: Calcium 8.6 mg/dL (8.5-10.1)
[2023-05-09 09:13] LABS: BUN/Creatinine Ratio 19.3 (10.0-20.0); Blood Urea Nitrogen 21 mg/dL (9-23); Glucose 93 mg/dL (74-106)
[2023-05-09] MEDS: IODIXANOL 320MG/ML 100ML BTL IV ONE ×5 (11:58→19:21)
[2023-05-09] MEDS: LIDOCAINE 2%HCL (LOCAL ANESTH.) INJ 20ML MDV ONE ×2 (11:58→16:39)
[2023-05-09] MEDS: HEPARIN IN NS 1000Units/500mL 0 ML ONE (11:58)
[2023-05-09 14:00] VITALS: BP 141/81; PULSE 74; RESP 15; TEMP 97.8; O2SAT 97
[2023-05-09] MEDS: HEPARIN SODIUM (PORCINE) 5000 UNITS/ML 1ML VIAL ONE (16:40)
[2023-05-09] MEDS: VERAPAMIL 2.5MG/ML INJ 2ML VIAL IV ONE (16:40)
[2023-05-09] MEDS: ANGIOMAX 250 MG VIAL IV ONE ×2 (16:40→18:09)
[2023-05-09] MEDS: fentaNYL CITRATE 100 MCG/2 ML VL ONE (16:40)
[2023-05-09] MEDS: MIDAZOLAM HCL 2MG/2ML 2ml VIAL (1mg/ml) ONE ×2 (16:41→17:44)
[2023-05-09] MEDS: SODIUM CHL 0.9% 50 ML ONE ×2 (16:41→18:09)
[2023-05-09] MEDS: HYDROmorphone HCL 2 MG/ML VL/or syr ONE (18:34)
[2023-05-09] MEDS: CLOPIDOGREL BISULFATE 75 MG TAB ONE (19:57)
[2023-05-09 20:00] VITALS: PULSE 89; RESP 18; O2SAT 92
[2023-05-09 21:52] VITALS: BP 100/50; PULSE 89; RESP 18; TEMP 97.3; O2SAT 92
[2023-05-09] MEDS: ATORVASTATIN 20 MG TAB PO SCH (23:15)
[2023-05-10] VITALS (12 sets, daily range): BP systolic 86–106; BP diastolic 36–63; PULSE 86–110; RESP 18–36; TEMP 97.5–99; O2SAT 82–94
[2023-05-10] MEDS: SODIUM CHLORIDE 0.9% 1,000 ML IV ONE (00:15)
[2023-05-10 06:00] LABS: Basophils # (auto) 0 10 ^3/uL (0-0.2); Basophils % (auto) 0.1 % (0.0-2.0); Eosinophils # (auto) 0 10 ^3/uL (0-0.8); Hematocrit 38.6 % (41.0-53.0); Hemoglobin 13.1 g/dL (13.5-17.5); Lymphocytes # (auto) 0.9 10 ^3/uL (0.4-5.4); Mean Corpuscular Hemoglobin 31.6 pg (28.0-32.0); Mean Corpuscular Hgb Conc. 33.8 g/dL (32.0-36.0); Mean Corpuscular Volume 93.4 fL (80.0-100.0); Monocytes # (auto) 0.8 10 ^3/uL (0-1.3); Monocytes % (auto) 7.7 % (0.0-12.0); Neutrophils # (auto) 9.2 10 ^3/uL (1.6-8.6); Neutrophils % (auto) 84.2 % (37.0-80.0); Red Blood Cells 4.14 10^6/uL (4.5-5.90); Red Cell Distribution Width 13.5 % (11.8-14.3)
[2023-05-10 06:12] LABS: Alanine Aminotransferase 45 U/L (7-40); Albumin 4.1 g/dL (3.2-4.8); Alkaline Phosphatase 131 U/L (46-116); Anion Gap 11 (5-15); Aspartate Aminotransferase 243 U/L (13-40); BUN/Creatinine Ratio 13.4 (10.0-20.0); Blood Urea Nitrogen 18 mg/dL (9-23); Carbon Dioxide 21 mmol/L (20-30); Chloride 105 mmol/L (98-107); Glucose 155 mg/dL (74-106); Potassium 4.5 mmol/L (3.5-5.1); Sodium 137 mmol/L (136-145)
[2023-05-10 06:13] LABS: Bilirubin, Total 0.7 mg/dL (0.2-1.0); Total Protein 6.8 g/dL (5.7-8.2)
[2023-05-10] MEDS: CARVEDILOL 3.125 MG TAB PO SCH (10:00)
[2023-05-10] MEDS: LISINOPRIL 5 MG TAB PO SCH (10:00)
[2023-05-10] MEDS: CLOPIDOGREL BISULFATE 75 MG TAB PO SCH (10:37)
[2023-05-10] MEDS: ASPirin 81 mg TAB PO SCH (10:38)
[2023-05-10] MEDS: SODIUM CHLORIDE 0.9% 1,000 ML IV SCH (11:00)
[2023-05-10] MEDS: ONDANSETRON HCL 4 MG/2 ML VIAL IV PRN (13:50)
[2023-05-10] MEDS: DOCUSATE SOD 100 MG CAP PO PRN (13:51)
[2023-05-10] MEDS: DOBUTamine 1000MCG/ML 250 ML IV SCH (23:09)
[2023-05-10] MEDS: FUROSEMIDE 20 MG/2 ML VIAL IV ONE (23:41)
[2023-05-10 23:49] LABS: Base Excess -4.7 mmol/L (-2.0-2.0)
[2023-05-11] VITALS (44 sets, daily range): BP systolic 63–109; BP diastolic 34–58; PULSE 65–144; RESP 13–35; TEMP 99.8–99.9; O2SAT 80–99
[2023-05-11] MEDS: MORPHINE SULFATE INJ 2 MG/ml SYRG IV PRN (03:01)
[2023-05-11 04:22] LABS: Basophils # (auto) 0 10 ^3/uL (0-0.2); Basophils % (auto) 0.1 % (0.0-2.0); Eosinophils # (auto) 0 10 ^3/uL (0-0.8); Hematocrit 35.6 % (41.0-53.0); Hemoglobin 11.9 g/dL (13.5-17.5); Lymphocytes # (auto) 0.8 10 ^3/uL (0.4-5.4); Lymphocytes % (auto) 6.2 % (10.0-50.0); Mean Corpuscular Hemoglobin 31.2 pg (28.0-32.0); Mean Corpuscular Hgb Conc. 33.4 g/dL (32.0-36.0); Mean Corpuscular Volume 93.4 fL (80.0-100.0); Monocytes # (auto) 1.1 10 ^3/uL (0-1.3); Monocytes % (auto) 8.6 % (0.0-12.0); Neutrophils # (auto) 11.2 10 ^3/uL (1.6-8.6); Neutrophils % (auto) 85.1 % (37.0-80.0); Red Blood Cells 3.81 10^6/uL (4.5-5.90); White Blood Cell 13.2 10^3/uL (4.4-10.8)
[2023-05-11 04:44] LABS: Alanine Aminotransferase 41 U/L (7-40); Albumin 3.6 g/dL (3.2-4.8); Alkaline Phosphatase 133 U/L (46-116); Anion Gap 11 (5-15); Aspartate Aminotransferase 338 U/L (13-40); BUN/Creatinine Ratio 18.4 (10.0-20.0); Bilirubin, Total 0.9 mg/dL (0.2-1.0); Calcium 8.2 mg/dL (8.5-10.1); Carbon Dioxide 20 mmol/L (20-30); Chloride 103 mmol/L (98-107); Glucose 224 mg/dL (74-106); Potassium 3.6 mmol/L (3.5-5.1); Sodium 134 mmol/L (136-145)
[2023-05-11 04:54] LABS: Blood Urea Nitrogen 29 mg/dL (9-23)
[2023-05-11] MEDS ORDERED: FUROSEMIDE 20 MG/2 ML VIAL IV ONE (06:00)
[2023-05-11] MEDS: ALBUMIN 25% 100 ML IV ONE (06:26)
[2023-05-11] MEDS ORDERED: NOREPINEPHRINE 8 MG/250ML KIT 250 ML IV ONE (08:09)
[2023-05-11] MEDS ORDERED: NOREPINEPHRINE 8 MG/250ML KIT 250 ML IV SCH (08:45)
[2023-05-11] MEDS: PHENYLEPHRINE IV 250 ML IV SCH (09:00)
[2023-05-11] MEDS: PHENYLEPHRINE IV 250 ML IV ONE (09:17)
[2023-05-11] MEDS ORDERED: LIDOCAINE 2% JELLY 11ml (GLYDO) ONE (09:24)
[2023-05-11] MEDS ORDERED: LIDOCAINE 2% JELLY 11ml (GLYDO) UR ONE (09:30)
== END 2023-05-11 15:00 | DRG 321 ==
LOC: ER 14:15 → TELE 21:30 → TELE-WESTW 21:30 → ICU WEST 05-10 22:38
PROVIDERS: ADMIT Nurse Practitioner Family; ATTEND Family Medicine
PROC: 027137Z Dilation of Coronary Artery, Two Arteries with Four or More Drug-eluting Intraluminal Devices, Percutaneous Approach (ICD-10-PCS; principal; 2023-05-09)
PROC: 4A023N7 Measurement of Cardiac Sampling and Pressure, Left Heart, Percutaneous Approach (ICD-10-PCS; 2023-05-09)
PROC: 4A033BC Measurement of Arterial Pressure, Coronary, Percutaneous Approach (ICD-10-PCS; 2023-05-09)
PROC: B241ZZ3 Ultrasonography of Multiple Coronary Arteries, Intravascular (ICD-10-PCS; 2023-05-09)
PROC: B211YZZ Fluoroscopy of Multiple Coronary Arteries using Other Contrast (ICD-10-PCS; 2023-05-09)
PROC: B215YZZ Fluoroscopy of Left Heart using Other Contrast (ICD-10-PCS; 2023-05-09)
PROC: 5A12012 Performance of Cardiac Output, Single, Manual (ICD-10-PCS; 2023-05-11)
DX: I21.4 Non-ST elevation (NSTEMI) myocardial infarction (principal); I50.43 Acute on chronic combined systolic (congestive) and diastolic (congestive) heart failure; J96.01 Acute respiratory failure with hypoxia; K72.00 Acute and subacute hepatic failure without coma; N17.0 Acute kidney failure with tubular necrosis; I13.0 Hypertensive heart and chronic kidney disease with heart failure and stage 1 through stage 4 chronic kidney disease, or unspecified chronic kidney disease; Z66 Do not resuscitate; R57.0 Cardiogenic shock; R26.81 Unsteadiness on feet; M25.511 Pain in right shoulder; M25.512 Pain in left shoulder; I16.0 Hypertensive urgency; I25.10 Atherosclerotic heart disease of native coronary artery without angina pectoris; K21.9 Gastro-esophageal reflux disease without esophagitis; N18.9 Chronic kidney disease, unspecified; G20.A1 Parkinson's disease without dyskinesia, without mention of fluctuations; G47.52 REM sleep behavior disorder; Z95.5 Presence of coronary angioplasty implant and graft; R13.10 Dysphagia, unspecified; R43.0 Anosmia; E78.00 Pure hypercholesterolemia, unspecified; R74.01 Elevation of levels of liver transaminase levels; D72.829 Elevated white blood cell count, unspecified; Z79.82 Long term (current) use of aspirin; Z83.3 Family history of diabetes mellitus; Z80.1 Family history of malignant neoplasm of trachea, bronchus and lung; Z88.0 Allergy status to penicillin
CPT/HCPCS: 36415; 36600; 71045; 80048; 80053; 80061; 81001; 82805; 82962; 83880; 84443; 84484; 85025; 87081; 87086; 92928; 92941; 92950; 92978; 93005; 93306; 93458; 93571; 95819; 99152; A4565; C1874; C1887; G0378; J1885; J2250; J2405; J3490; P9047; Q9967